=== PATIENT | female | born 1955 | race Caucasian/White ===

== ENCOUNTER 2017-09-19 11:13 | Emergency (ER) | payer MEDICAID ==
[2017-09-19 11:13] VITALS: BMI 29.2
--- NOTE | 2017-09-19 12:32 | ED PDOC ---
Arrival/HPI - General Chief Complaint: Finger,Hand,&Wrist Time Seen by Provider: 09/19/17 12:17 Historian: Patient - History of Present Illness Narrative History of Present Illness (Text): 09/19/17 12:28 62yr old female presents today with a 4 month history of bilateral hand pain. pt states the majority of the pain is in the thumbs bilaterally. pt denies numbness, weakness, tingling. pt states she did have swelling to the hands, but states it has improved. pt denies fever/chills. pt denies trauma or injury. pt states she is constantly working with her hands. pt denies radiation of pain into the forearms. no other complaints. Past Medical History - Provider Review Nursing Documentation Reviewed: Yes - Travel History Have you recently traveled outside [place] w/in the past 3 mons?: No - Infectious Disease Hx of Infectious Diseases: None - Tetanus Immunization Tetanus Immunization: Unknown - Cardiac Hx Cardiac Disorders: Yes Hx Heart Murmur: Yes Hx Hypertension: Yes - Pulmonary Hx Respiratory Disorders: Yes Hx Asthma: Yes Hx Bronchitis: Yes - Neurological Hx Neurological Disorder: Yes HX Cerebrovascular Accident: Yes (SLIGHT RIGHT SIDED WEAKNESS) Hx Dizziness: Yes - HEENT Hx HEENT Disorder: No - Renal Hx Renal Disorder: Yes Hx Kidney Stones: Yes - Endocrine/Metabolic Hx Endocrine Disorders: No - Hematological/Oncological Hx Blood Disorders: No - Integumentary Hx Dermatological Disorder: No - Musculoskeletal/Rheumatological Hx Musculoskeletal Disorders: Yes Hx Falls: No - Gastrointestinal Hx Gastrointestinal Disorders: Yes Hx Gastroesophageal Reflux: Yes Hx Hemorrhoids: Yes - Genitourinary/Gynecological Hx Genitourinary Disorders: Yes Hx Urinary Tract Infection: Yes - Psychiatric Hx Psychophysiologic Disorder: Yes Hx Anxiety: Yes Hx Depression: Yes Hx Substance Use: No - Past Surgical History Past Surgical History: No Previous - Surgical History Hx Tubal Ligation: Yes - Anesthesia Hx Anesthesia: Yes Hx Anesthesia Reactions: No Hx Malignant Hyperthermia: No - Suicidal Assessment Feels Threatened In Home Enviroment: No Family/Social History - Physician Review Nursing Documentation Reviewed: Yes Family/Social History: Unknown Family HX Smoking Status: Never Smoked Hx Alcohol Use: Yes (SOCIALLY) Hx Substance Use: No Hx Substance Use Treatment: No Allergies/Home Meds Allergies/Adverse Reactions: Allergies No Known Allergies Allergy (Verified 09/19/17 11:41) Home Medications: Home Meds Medication Instructions Recorded Confirmed Metoprolol Tartrate [Lopressor] 25 mg PO BID 01/17/12 09/19/17 Aspirin [Aspir 81] 81 mg PO DAILY 12/28/12 09/19/17 amLODIPine [Norvasc] 10 mg PO DAILY 01/06/15 09/19/17 Sertraline HCl [Zoloft] 25 mg PO DAILY 08/15/15 09/19/17 Montelukast [Singulair] 10 mg PO DAILY 10/01/15 09/19/17 Review of Systems - Review of Systems Constitutional: absent: Fatigue, Fevers Respiratory: absent: SOB, Cough Cardiovascular: absent: Chest Pain, Palpitations Gastrointestinal: absent: Abdominal Pain, Nausea, Vomiting Musculoskeletal: Arthralgias. absent: Back Pain, Neck Pain Skin: absent: Rash, Pruritis Neurological: absent: Headache, Dizziness Psychiatric: absent: Anxiety, Depression Physical Exam Vital Signs Reviewed: Yes Vital Signs Temp Pulse Resp BP Pulse Ox 09/19/17 11:43 98.4 F 63 16 127/76 97 Temperature: Afebrile Blood Pressure: Normal Pulse: Regular Respiratory Rate: Normal Appearance: Positive for: Well-Appearing, Non-Toxic, Comfortable Pain Distress: None Mental Status: Positive for: Alert and Oriented X 3 - Systems Exam Head: Present: Atraumatic Mouth: Present: Moist Mucous Membranes Neck: Present: Normal Range of Motion Respiratory/Chest: Present: Clear to Auscultation, Good Air Exchange. No: Respiratory Distress, Accessory Muscle Use Cardiovascular: Present: Regular Rate and Rhythm, Normal S1, S2. No: Murmurs Upper Extremity: Present: Normal ROM, NORMAL PULSES, Tenderness (+ minimal tenderness noted over bilateral thumbs; no edema, no erythema; no ecchymosis; full rom of hand, thumb, fingers. sensation and distal pulses intact. no snuff box tenderness. no edema, no erythema, no ecchymosis; ), Capillary Refill < 2s. No: Swelling, Erythema, Neurovascularly Intact, Temperature Abnormalties, Deformity Neurological: Present: GCS=15, Speech Normal Skin: Present: Warm, Dry, Normal Color. No: Rashes Psychiatric: Present: Alert, Oriented x 3 Medical Decision Making ED Course and Treatment: 09/19/17 12:38 Patient nontoxic well-appearing in no distress with stable vital signs X-rays of the b/l thumbs; no fracture pt placed in b/l thumb spica splints. I discussed all results with patient advised to followup with the orthopedist for the next 2 days. Return if symptoms worsen persist or new symptoms develop Patient verbalizes understanding of discharge instructions and need for immediate followup. all aspects of this case were discussed the attending of record. Impression: thumb pain, Hand pain Motrin every 6 hours as needed for pain Rest, ice, compression, elevation Followup with the orthopedist within the next 2 days Followup with primary care physician within the next 2 days Return if any other concerning symptoms develop - RAD Interpretation Radiology Orders: 09/19/17 12:17 HAND LEFT THUMB [RAD] Stat HAND RIGHT THUMB [RAD] Stat - Medication Orders Current Medication Orders: Discontinued Medications Ibuprofen (Motrin Tab) 600 mg PO STAT STA Stop: 09/19/17 12:39 Last Admin: 09/19/17 13:16 Dose: 600 mg MAR Pain/Vitals Document 09/19/17 13:16 DELMY (Rec: 09/19/17 13:16 DELMY [id number]) Pain Reassessment Is This A Pain ReAssessment? No Sleep Is patient sleeping during reassessment? No Presence of Pain Presence of Pain Yes Disposition/Present on Arrival - Present on Arrival Any Indicators Present on Arrival: No History of DVT/PE: No History of Uncontrolled Diabetes: No Urinary Catheter: No History of Decub. Ulcer: No History Surgical Site Infection Following: None - Disposition Have Diagnosis and Disposition been Completed?: Yes Diagnosis: Hand pain, Thumb pain Disposition: HOME/ ROUTINE Disposition Time: 13:00 Patient Plan: Discharge Patient Problems: Current Active Problems Problem Status Onset Hand pain Acute Thumb pain Acute Condition: GOOD Discharge Instructions (ExitCare): Hand Pain (DC) Additional Instructions: Motrin every 6 hours as needed for pain Rest, ice, compression, elevation Followup with the orthopedist within the next 2 days Followup with primary care physician within the next 2 days Return if any other concerning symptoms develop Referrals: Marbella Redmond MD [Primary Care Provider] - Follow up with primary Sherman Downing III, MD [Medical Doctor] - Follow up with primary Forms: [email or web address] Connect (Indonesian), WORK NOTE
--- NOTE | 2017-09-19 13:41 | RAD ---
PROCEDURE: Right Hand Radiographs. HISTORY: thumb pain x 4 months COMPARISON: None. FINDINGS: BONES: Normal. No fracture. JOINTS: Normal. No osteoarthritic changes. SOFT TISSUES: Normal. OTHER FINDINGS: None. IMPRESSION: Normal right hand radiographs.
--- NOTE | 2017-09-19 13:44 | RAD ---
PROCEDURE: Left Hand Radiographs. HISTORY: thumb pain x 4 months COMPARISON: None. FINDINGS: BONES: Normal. No fracture. JOINTS: Normal. No osteoarthritic changes. SOFT TISSUES: There is a calcification dorsal to the 1st DIP joint. This could represent some type of calcific tendinitis. This does not appear to be an avulsion fracture. There is no obvious defect in the adjacent bone OTHER FINDINGS: None. IMPRESSION: There is a calcification dorsal to the 1st DIP joint. This could represent some type of calcific tendinitis. This does not appear to be an avulsion fracture. There is no obvious defect in the adjacent bone
[2017-09-19 14:51] VITALS: BP 122/82; PULSE 66; RESP 18; TEMP 98.2; O2SAT 99
== END 2017-09-19 14:30 | disposition home or self-care (01) ==
LOC: ED 11:13
DX: M79.641 Pain in right hand (principal); M79.642 Pain in left hand; M79.645 Pain in left finger(s); M79.644 Pain in right finger(s); I10 Essential (primary) hypertension

== ENCOUNTER 2018-04-11 16:29 | Observation (INO) | payer MEDICAID ==
[2018-04-11 16:31] VITALS: BMI 27.9
--- NOTE | 2018-04-11 17:13 | ED PDOC ---
Arrival/HPI - General Chief Complaint: Chest Pain Time Seen by Provider: 04/11/18 16:38 Historian: Patient - History of Present Illness Narrative History of Present Illness (Text): 04/11/18 17:07 62 year old female, whose past medical history includes hypertension, and TIA, presents to the emergency department complaining of chest pain intermittently for the past 2 weeks. Patient states a throbbing and squeezing pain in the center of chest and worsens with exertion. She also notes secondary, intermittent leg swelling and orthopnea. Patient was seen by her PMD, Dr. Redmond who recommend evaluation by the emergency department. Of note, patient did not take aspirin today. Patient denies chest pain radiating to the back, any fall or trauma, fever, chills, night sweat, pleuritic chest pain, headache, dizziness, abdominal pain, nausea, vomiting, or any other complaint. Time/Duration: > week (2 weeks) Symptom Course: Intermittent Activities at Onset: Light Context: Home Past Medical History - Provider Review Nursing Documentation Reviewed: Yes - Infectious Disease Hx of Infectious Diseases: None - Tetanus Immunization Tetanus Immunization: Unknown - Reproductive Menopause: Yes - Cardiac Hx Cardiac Disorders: Yes Hx Heart Murmur: Yes Hx Hypertension: Yes - Pulmonary Hx Respiratory Disorders: Yes Hx Asthma: Yes Hx Bronchitis: Yes - Neurological Hx Neurological Disorder: Yes HX Cerebrovascular Accident: Yes (SLIGHT RIGHT SIDED WEAKNESS) Hx Dizziness: Yes - HEENT Hx HEENT Disorder: No - Renal Hx Renal Disorder: Yes Hx Kidney Stones: Yes - Endocrine/Metabolic Hx Endocrine Disorders: No - Hematological/Oncological Hx Blood Disorders: No - Integumentary Hx Dermatological Disorder: No - Musculoskeletal/Rheumatological Hx Musculoskeletal Disorders: Yes - Gastrointestinal Hx Gastrointestinal Disorders: Yes Hx Gastroesophageal Reflux: Yes Hx Hemorrhoids: Yes - Genitourinary/Gynecological Hx Genitourinary Disorders: Yes Hx Urinary Tract Infection: Yes - Psychiatric Hx Psychophysiologic Disorder: Yes Hx Anxiety: Yes Hx Depression: Yes Hx Substance Use: No - Past Surgical History Past Surgical History: No Previous - Surgical History Hx Tubal Ligation: Yes - Anesthesia Hx Anesthesia: Yes Hx Anesthesia Reactions: No Hx Malignant Hyperthermia: No - Suicidal Assessment Feels Threatened In Home Enviroment: No Family/Social History - Physician Review Nursing Documentation Reviewed: Yes Family/Social History: No Known Family HX Smoking Status: Never Smoked Hx Alcohol Use: Yes (SOCIALLY) Hx Substance Use: No Hx Substance Use Treatment: No Allergies/Home Meds Allergies/Adverse Reactions: Allergies No Known Allergies Allergy (Verified 09/19/17 11:41) Home Medications: Home Meds Medication Instructions Recorded Confirmed Metoprolol Tartrate [Lopressor] 25 mg PO BID 01/17/12 09/19/17 Aspirin [Aspir 81] 81 mg PO DAILY 12/28/12 09/19/17 amLODIPine [Norvasc] 10 mg PO DAILY 01/06/15 09/19/17 Sertraline HCl [Zoloft] 25 mg PO DAILY 08/15/15 09/19/17 Montelukast [Singulair] 10 mg PO DAILY 10/01/15 09/19/17 Review of Systems - Physician Review All systems were reviewed & negative as marked: Yes - Review of Systems Constitutional: absent: Weight Change, Fevers Eyes: absent: Vision Changes ENT: absent: Hearing Changes Respiratory: SOB Cardiovascular: Chest Pain, Edema (bilaterally) Gastrointestinal: absent: Abdominal Pain, Diarrhea, Nausea, Vomiting Genitourinary Female: absent: Dysuria, Frequency, Hematuria Musculoskeletal: absent: Back Pain, Neck Pain Skin: absent: Rash, Pruritis Neurological: absent: Headache, Dizziness Physical Exam Vital Signs Reviewed: Yes Vital Signs Temp Pulse Pulse Resp BP Pulse Ox 04/11/18 16:43 78 04/11/18 16:30 98 F 88 18 132/85 97 Temperature: Afebrile Blood Pressure: Normal Pulse: Regular Respiratory Rate: Normal Appearance: Positive for: Well-Appearing, Non-Toxic, Comfortable Pain Distress: None Mental Status: Positive for: Alert and Oriented X 3 - Systems Exam Head: Present: Atraumatic, Normocephalic Pupils: Present: PERRL Extroacular Muscles: Present: EOMI Conjunctiva: Present: Normal Mouth: Present: Moist Mucous Membranes Neck: Present: Normal Range of Motion. No: Meningeal Signs Respiratory/Chest: Present: Clear to Auscultation, Good Air Exchange. No: Respiratory Distress, Accessory Muscle Use Cardiovascular: Present: Regular Rate and Rhythm, Normal S1, S2. No: Murmurs Abdomen: No: Tenderness, Distention, Peritoneal Signs, Rebound, Guarding, McBurney's Point Tender, Rovsing's Sign Present Back: Present: Normal Inspection Upper Extremity: Present: Normal Inspection. No: Cyanosis, Edema Lower Extremity: Present: Edema (1+ edema bilaterally ) Neurological: Present: GCS=15, CN II-XII Intact, Speech Normal Skin: Present: Warm, Dry, Normal Color. No: Rashes Psychiatric: Present: Alert, Oriented x 3, Normal Insight, Normal Concentration Medical Decision Making ED Course and Treatment: 04/11/18 17:00 Impression: 62 year old female who presents to the emergency department complaining of chest pain. chest pain non pleuritic, no unilateral leg swelling or hx of dvt or PE per pt. No hx of cancer or recent surgery or trauma. Given CP and 2015 was last echo/stress will likely require obs/inpt eval. Heart score: AGE: 1 RF: 1 Story: 2 EK trop: pending Plan: -- EKG -- Labs -- Chest X-ray -- Reassess and disposition Prior Visits: Notes and results from previous visits were reviewed. Progress Notes: EKG reviewed, shows: NSR at 85 bpm, no stemi. 04/11/18 17:[address] Luu, who recommends evaluation by hospitalist and admission or obs. 04/11/18 17:53 Imaging, trop, BNP unremarkable pt did not take ASA today will give ASA Appreciate consult w/ Dr. Santos: to admit to his service. pt in NAD, agreeable to plan. - Lab Interpretations I have reviewed the lab results: Yes - RAD Interpretation Radiology Orders: 04/11/18 16:58 CHEST TWO VIEWS (PA/LAT) [RAD] Stat - EKG Interpretation Interpreted by ED Physician: Yes Type: 12 lead EKG - Scribe Statement The provider has reviewed the documentation as recorded by the Laci Wilcox Provider Scribe Attestation: All medical record entries made by the Scribe were at my direction and personally dictated by me. I have reviewed the chart and agree that the record accurately reflects my personal performance of the history, physical exam, medical decision making, and the department course for this patient. I have also personally directed, reviewed, and agree with the discharge instructions and disposition. Disposition/Present on Arrival - Present on Arrival Any Indicators Present on Arrival: No History of DVT/PE: No History of Uncontrolled Diabetes: No Urinary Catheter: No History of Decub. Ulcer: No History Surgical Site Infection Following: None - Disposition Have Diagnosis and Disposition been Completed?: Yes Diagnosis: Chest pain Disposition Time: 18:09 Condition: GOOD Discharge Instructions (ExitCare): Chest Pain (ED) Forms: [employer] (Indonesian)
[2018-04-11 17:15] LABS: BASO # 0.05 K/mm3 (0.0-2.0); BASO % 0.8 % (0.0-3.0); EOS # 0.2 (0.0-0.7); EOS % 3.9 % (1.5-5.0); GRAN # 3.66 (1.4-6.5); GRAN % 61.8 % (50.0-68.0); HEMOGLOBIN 12.7 g/dL (12.0-16.0); LYMPH # 1.5 (1.2-3.4); LYMPH % 25.6 % (22.0-35.0); MEAN CORPUSCULAR HEMOGLOBIN 30.5 pg (25.0-35.0); MEAN CORPUSCULAR HGB CONC 32.2 g/dl (31.0-37.0); MEAN PLATELET VOLUME 10.9 fl (7.0-11.0); MONO # 0.5 (0.1-0.6); MONO % 7.9 % (1.0-6.0); RBC 4.16 10^6/uL (3.5-6.1); RED CELL DISTRIBUTION WIDTH 13.2 % (11.5-14.5); WHITE BLOOD COUNT 5.9 10^3/uL (4.5-11.0)
[2018-04-11 17:23] LABS: ALB/GLOB RATIO 1.4 (1.1-1.8); ALBUMIN 4.2 g/dL (3.0-4.8); ALT/SGPT 32 U/L (7-56); AST/SGOT 27 U/L (14-36); BLOOD UREA NITROGEN 10 mg/dL (7-21); CALCIUM 9.2 mg/dL (8.4-10.5); GFR NON-AFRICAN AMERICAN > 60
[2018-04-11 17:32] LABS: B-TYPE NATRIURETIC PEPTIDE 79.2 pg/mL (0-450); TROPONIN I < 0.01 ng/mL
--- NOTE | 2018-04-11 17:46 | RAD ---
Date of service: 04/11/2018 HISTORY: Chest pain COMPARISON: 09/10/2014. TECHNIQUE: Chest PA and lateral FINDINGS: LINES AND TUBES: None. LUNG AND PLEURA: The lungs are well inflated and clear. No pleural effusion or pneumothorax. HEART AND MEDIASTINUM: There is mild cardiomegaly. No aortic atherosclerotic calcification present. The hilar and mediastinal contours are within normal limits. SKELETAL STRUCTURES: The bony structures are within normal limits for the patient's age. VISUALIZED UPPER ABDOMEN: Normal. OTHER FINDINGS: None. IMPRESSION: No active pulmonary disease.
[2018-04-11] MEDS ORDERED: Albuterol-Ipratrop 3 mg / 0.5 (3 ml) UD IH PRN (18:31)
--- NOTE | 2018-04-11 18:55 | CP.PCM.HP ---
<Walt Kilgore - Last Filed: 04/11/18 19:51> History of Present Illness - History of Present Illness History of Present Illness: Walt Kilgore, PGY-1, Internal Medicine History and Physical for Dr. Larry 62 year old female with past medical history of myocardial infarction, hypercholesterolemia, hypertension, TIA, peptic ulcer disease, mitral valve dysfunction, obstructive sleep apnea, and dental and sinus infection presents with 1 weeks of crushing, stabbing chest pain. Patient reports that she has had this type of pain before when she had a myocardial infarction in 2003. No PCI was done at that time. Patient reports this pain radiates to the right arm. Tylenol relieves the pain. Movement or exertion does not alleviate or exacerbate the pain. Patient has also had 1 week of nausea, 2 weeks of diaphoresis, and frontal sinus pain. Patient has shortness of breath while suing the stairs that has worsened for the past 2 weeks. She has worsened back pain for on week. She also compalins of mild stabbing right lower quadrant pain that radiates to her right flank. She denies fever, chills, dysuria, hematuria, vomiting, constipation, diarrhea, numbness/tingling. 12-point ROS was negative except for what was listed above. PMH: as listed above PSH: tubal ligation FMHx: Mother: diabetes, hypertension, and hyperlipidemia and living at 83 years old. Father is from a heart attack at 53 years old. Social history: denies smoking, alcohol, or recreational drug use Allergies: NKDA, latex PMD: Dr. Redmond Cardiology: Dr. Wright Pharmacy: [facility] Present on Admission - Present on Admission Any Indicators Present on Admission: No Review of Systems - Constitutional Constitutional: Headache. absent: Anorexia, Chills, Fever - EENT Eyes: absent: Change in Vision Ears: absent: Decreased Hearing - Cardiovascular Cardiovascular: Chest Pain, Chest Pain at Rest, Chest Pain with Activity, Diaphoresis, Dyspnea, Pain Radiating to Arm/Neck/Jaw. absent: Irregular Heart Rhythm - Respiratory Respiratory: Dyspnea. absent: Cough, Hemoptysis, Dyspnea on Exertion - Gastrointestinal Gastrointestinal: Abdominal Pain (RLQ), Nausea. absent: Constipation, Diarrhea, Vomiting - Genitourinary Genitourinary: Flank Pain. absent: Dysuria, Hematuria - Musculoskeletal Musculoskeletal: absent: Arthralgias, Atrophy - Integumentary Integumentary: absent: Acne, Dry Skin - Neurological Neurological: Headaches Past Patient History - Infectious Disease Hx of Infectious Diseases: None - Tetanus Immunizations Tetanus Immunization: Unknown - Past Social History Smoking Status: Never Smoked - CARDIAC Hx Cardiac Disorders: Yes Hx Heart Murmur: Yes Hx Hypertension: Yes - PULMONARY Hx Respiratory Disorders: Yes Hx Asthma: Yes Hx Bronchitis: Yes - NEUROLOGICAL Hx Neurological Disorder: Yes HX Cerebrovascular Accident: Yes (SLIGHT RIGHT SIDED WEAKNESS) Hx Dizziness: Yes - HEENT Hx HEENT Problems: No - RENAL Hx Chronic Kidney Disease: Yes Hx Kidney Stones: Yes - ENDOCRINE/METABOLIC Hx Endocrine Disorders: No - HEMATOLOGICAL/ONCOLOGICAL Hx Blood Disorders: No - INTEGUMENTARY Hx Dermatological Problems: No - MUSCULOSKELETAL/RHEUMATOLOGICAL Hx Musculoskeletal Disorders: Yes - GASTROINTESTINAL Hx Gastrointestinal Disorders: Yes Hx Gastroesophageal Reflux: Yes Hx Hemorrhoids: Yes - GENITOURINARY/GYNECOLOGICAL Hx Genitourinary Disorders: Yes Hx Urinary Tract Infection: Yes - PSYCHIATRIC Hx Psychophysiologic Disorder: Yes Hx Anxiety: Yes Hx Depression: Yes Hx Substance Use: No - SURGICAL HISTORY Hx Tubal Ligation: Yes - ANESTHESIA Hx Anesthesia: Yes Hx Anesthesia Reactions: No Hx Malignant Hyperthermia: No Meds Allergies/Adverse Reactions: Allergies Allergy/AdvReac Type Severity Reaction Status Date / Time No Known Allergies Allergy Verified 09/19/17 11:41 Physical Exam - Head Exam Head Exam: ATRAUMATIC, NORMAL INSPECTION, NORMOCEPHALIC - Eye Exam Eye Exam: EOMI, PERRL - ENT Exam ENT Exam: Mucous Membranes Moist - Respiratory Exam Respiratory Exam: Clear to Auscultation Bilateral, NORMAL BREATHING PATTERN - Cardiovascular Exam Cardiovascular Exam: REGULAR RHYTHM, +S1, +S2. absent: JVD - GI/Abdominal Exam GI & Abdominal Exam: Distended, Normal Bowel Sounds, Soft, Tenderness (mild tenderness) - Extremities Exam Extremities exam: Positive for: full ROM, normal inspection - Back Exam Back exam: NORMAL INSPECTION - Neurological Exam Neurological exam: CN II-XII Intact, Normal Gait, Oriented x3 Results - Vital Signs Recent Vital Signs: Last Vital Signs Temp 98 F 04/11/18 16:30 Pulse 77 04/11/18 18:31 Resp 18 04/11/18 18:31 BP 125/83 04/11/18 18:31 Pulse Ox 96 12/05/18 18:31 - Labs Result Diagrams: 04/11/18 17:04 04/11/18 17:04 Labs: Laboratory Results - last 24 hr 04/11/18 04/11/18 17:04 17:04 WBC 5.9 RBC 4.16 Hgb 12.7 Hct 39.5 MCV 95.0 MCH 30.5 MCHC 32.2 RDW 13.2 Plt Count 327 MPV 10.9 Gran % 61.8 Lymph % (Auto) 25.6 Stanley % (Auto) 7.9 H Eos % (Auto) 3.9 Baso % (Auto) 0.8 Gran # 3.66 Lymph # (Auto) 1.5 Stanley # (Auto) 0.5 Eos # (Auto) 0.2 Baso # (Auto) 0.05 Sodium 138 Potassium 3.8 Chloride 104 Carbon Dioxide 27 Anion Gap 11 BUN 10 Creatinine 0.7 Est GFR ( Amer) > 60 Est GFR (Non-Af Amer) > 60 Random Glucose 92 Calcium 9.2 Magnesium 2.0 Total Bilirubin 0.4 AST 27 ALT 32 Alkaline Phosphatase 59 Troponin I < 0.01 NT-Pro-B Natriuret Pep 79.2 Total Protein 7.2 Albumin 4.2 Globulin 3.0 Albumin/Globulin Ratio 1.4 Assessment & Plan - Assessment and Plan (Free Text) Assessment: 62 year old female with past medical history of myocardial infarction, hypercholesterolemia, hypertension, TIA, peptic ulcer disease, mitral valve dys function, obstructive sleep apnea, and dental and sinus infection presents with 1 weeks of crushing, stabbing chest pain. Plan: Atypical Chest pain secondary to costochondritis vs. stable angina vs. asthma -Last reported VT was in 2003 -EKG today: normal sinus rhythm, HR: 85, CA: 136, QRS: 100, QTc: 459 -CXR: mild cardiomegaly. No aortic atherosclerotic calcification present.. Lungs are well inflated and clear. No pleural effusion or pneumothorax. -Last echocardiogram 2015: 60-65% EF, mild MR, TR -Last stress test 2015: normal gated wall motion of left ventricle -Troponin: <0.01 -Two more troponin levels ordered. -Follow up TSH, lipid panel, hemoglobin A1c. -Heart healthy diet. -Aspirin 325 given in emergency department. -Continue home metoprolol -Continue with home singulair, duonebs, flonase -Toradol 15 mg IVP Q6PRN for pain. -Dr. Wright, Cardiology, consulted for recommendations. Hypertension -Last blood pressure was 125/83 -Continue home metoprolol, norvasc Hyperlipidemia -Lipid panel ordered. -Start lipitor 10 mg daily History of depression -Continue with home zoloft DVT prophylaxis: lovenox 40 mg daily GI prophylaxis: protonix 40 mg daily Patient plan discussed with Dr. Larry. - Date & Time Date: 04/11/18 Time: 19:01 <Sadie Larry - Last Filed: 04/11/18 20:16> Results - Vital Signs Recent Vital Signs: Last Vital Signs Temp 98 F 04/11/18 16:30 Pulse 77 04/11/18 18:31 Resp 18 04/11/18 18:31 BP 125/83 04/11/18 18:31 Pulse Ox 96 04/11/18 18:31 - Labs Result Diagrams: 04/11/18 17:04 04/11/18 17:04 Labs: Laboratory Results - last 24 hr 04/11/18 04/11/18 17:04 17:04 WBC 5.9 RBC 4.16 Hgb 12.7 Hct 39.5 MCV 95.0 MCH 30.5 MCHC 32.2 RDW 13.2 Plt Count 327 MPV 10.9 Gran % 61.8 Lymph % (Auto) 25.6 Stanley % (Auto) 7.9 H Eos % (Auto) 3.9 Baso % (Auto) 0.8 Gran # 3.66 Lymph # (Auto) 1.5 Stanley # (Auto) 0.5 Eos # (Auto) 0.2 Baso # (Auto) 0.05 Sodium 138 Potassium 3.8 Chloride 104 Carbon Dioxide 27 Anion Gap 11 BUN 10 Creatinine 0.7 Est GFR ( Amer) > 60 Est GFR (Non-Af Amer) > 60 Random Glucose 92 Calcium 9.2 Magnesium 2.0 Total Bilirubin 0.4 AST 27 ALT 32 Alkaline Phosphatase 59 Troponin I < 0.01 NT-Pro-B Natriuret Pep 79.2 Total Protein 7.2 Albumin 4.2 Globulin 3.0 Albumin/Globulin Ratio 1.4 Attending/Attestation - Attestation I have personally seen and examined this patient.: Yes I have fully participated in the care of the patient.: Yes I have reviewed all pertinent clinical information: Yes
--- NOTE | 2018-04-11 19:15 | CARD ---
APPROVED REPORT Date of service: 04/11/2018 EKG Measurement Heart [id number] <Conclusion> Normal sinus rhythm Possible Left atrial enlargement Inferior infarct, age undetermined Abnormal ECG
[2018-04-12] MEDS ORDERED: Pantoprazole 40 mg EC Tab PO SCH (06:00)
[2018-04-12 06:22] VITALS: O2SAT 99
[2018-04-12 06:41] LABS: ALB/GLOB RATIO 1.3 (1.1-1.8); ALBUMIN 3.6 g/dL (3.0-4.8); ALT/SGPT 35 U/L (7-56); AST/SGOT 25 U/L (14-36); BLOOD UREA NITROGEN 11 mg/dL (7-21); CALCIUM 9.2 mg/dL (8.4-10.5); GFR NON-AFRICAN AMERICAN > 60; HDL CHOLESTEROL 41 mg/dL (29-60)
[2018-04-12 06:42] LABS: BASO # 0.03 K/mm3 (0.0-2.0); BASO % 0.6 % (0.0-3.0); EOS # 0.3 (0.0-0.7); EOS % 5.7 % (1.5-5.0); GRAN # 2.51 (1.4-6.5); GRAN % 48.8 % (50.0-68.0); HEMOGLOBIN 11.9 g/dL (12.0-16.0); LYMPH # 1.7 (1.2-3.4); LYMPH % 32.4 % (22.0-35.0); MEAN CELL VOLUME 94.8 fl (80.0-105.0); MEAN CORPUSCULAR HEMOGLOBIN 29.8 pg (25.0-35.0); MEAN CORPUSCULAR HGB CONC 31.4 g/dl (31.0-37.0); MEAN PLATELET VOLUME 10.6 fl (7.0-11.0); MONO # 0.6 (0.1-0.6); MONO % 12.5 % (1.0-6.0); RED CELL DISTRIBUTION WIDTH 13.3 % (11.5-14.5); WHITE BLOOD COUNT 5.1 10^3/uL (4.5-11.0)
[2018-04-12 06:52] LABS: LDL CHOLESTEROL 133 mg/dL (0-129); TROPONIN I < 0.01 ng/mL
--- NOTE | 2018-04-12 08:00 | CP.PCM.CON ---
History of Present Illness - History of Present Illness History of Present Illness: Awake, alert, some mild chest discomfort Reason for consultation: Cardiac evaluation of chest pain, history of myocardial infarction in 2004, hypercholesterolemia, hypertension Brief history of present illness:A 62 year old female who came in to the ER due to stabbing mid sternal chest pain radiating to right arm. Denies chest pain now but still with chest discomfort. She also complaints of shortness of breath on exertion. History of myocardial infarction in 2003, hypercholesterolemia, hypertension, TIA, peptic ulcer disease, mitral valve dysfunction, obstructive sleep apnea, and dental and sinus infection Seen and examined by me and Dr. Wright Review of Systems - Review of Systems All systems: reviewed and no additional remarkable complaints except Review of Systems: as per HPI Past Patient History - Infectious Disease Hx of Infectious Diseases: None - Tetanus Immunizations Tetanus Immunization: Unknown - Past Social History Smoking Status: Never Smoked - CARDIAC Hx Heart Murmur: Yes Hx Hypertension: Yes - PULMONARY Hx Bronchitis: Yes - NEUROLOGICAL Hx Dizziness: Yes Hx Transient Ischemic Attacks (TIA): Yes (r side weakness) - HEENT Hx HEENT Problems: No - RENAL Hx Chronic Kidney Disease: Yes (renal disease) - ENDOCRINE/METABOLIC Hx Endocrine Disorders: No - HEMATOLOGICAL/ONCOLOGICAL Hx Blood Disorders: No - INTEGUMENTARY Hx Dermatological Problems: No - MUSCULOSKELETAL/RHEUMATOLOGICAL Hx Falls: No - GASTROINTESTINAL Hx Gastrointestinal Disorders: Yes Hx Gastroesophageal Reflux: Yes Hx Hemorrhoids: Yes - GENITOURINARY/GYNECOLOGICAL Hx Urinary Tract Infection: Yes - PSYCHIATRIC Hx Anxiety: Yes Hx Depression: Yes Hx Substance Use: No - SURGICAL HISTORY Hx Surgeries: Yes (tubal ligation) - ANESTHESIA Hx Anesthesia: Yes Hx Anesthesia Reactions: No Hx Malignant Hyperthermia: No Meds Allergies/Adverse Reactions: Allergies Allergy/AdvReac Type Severity Reaction Status Date / Time No Known Allergies Allergy Verified 09/19/17 11:41 - Medications Medications: Current Medications Acetaminophen (Tylenol 325mg Tab) 650 mg PO Q6H PRN PRN Reason: Pain, moderate (4-7) Albuterol/Ipratropium (Duoneb 3 Mg/0.5 Mg (3 Ml) Ud) 3 ml IH Q2H PRN PRN Reason: Shortness of Breath Amlodipine Besylate (Norvasc) 10 mg PO DAILY [facility] Aspirin (Ecotrin) 81 mg PO DAILY [facility] Atorvastatin Calcium (Lipitor) 10 mg PO DIN [facility] Enoxaparin Sodium (Lovenox) 40 mg SC DAILY [facility]; Protocol Fluticasone Propionate (Flonase) 1 actuation NS QAM MARIANELA Ketorolac Tromethamine (Toradol) 15 mg IVP Q6 PRN PRN Reason: Pain, moderate (4-7) Last Admin: 04/12/18 04:50 Dose: 15 mg Metoprolol Tartrate (Lopressor) 25 mg PO BID [facility] Montelukast Sodium (Singulair) 10 mg PO DAILY [facility] Ondansetron HCl (Zofran Odt) 4 mg PO Q8H PRN PRN Reason: Nausea/Vomiting Pantoprazole Sodium (Protonix Ec Tab) 40 mg PO 0600 MARIANELA Last Admin: 04/12/18 05:08 Dose: 40 mg Sertraline HCl (Zoloft) 25 mg PO DAILY [facility] Physical Exam - Constitutional Appears: Non-toxic, No Acute Distress - Head Exam Head Exam: NORMAL INSPECTION, NORMOCEPHALIC - ENT Exam ENT Exam: Mucous Membranes Moist, Normal Exam - Respiratory Exam Respiratory Exam: Decreased Breath Sounds, NORMAL BREATHING PATTERN - Cardiovascular Exam Cardiovascular Exam: REGULAR RHYTHM, +S1, +S2 Additional comments: Telemetry NSR 60's-70's Mild chest discomfort, denies chest pain - GI/Abdominal Exam GI & Abdominal Exam: Normal Bowel Sounds, Soft - Neurological Exam Neurological exam: Alert, Oriented x3 - Psychiatric Exam Psychiatric exam: Normal Affect, Normal Mood - Skin Skin Exam: Dry, Normal Color, Warm Results - Vital Signs Recent Vital Signs: Last Vital Signs Temp 98.0 F 04/12/18 06:00 Pulse 70 04/12/18 06:00 Resp 18 04/12/18 06:00 BP 136/85 04/12/18 06:00 Pulse Ox 99 04/12/18 06:00 - Labs Result Diagrams: 04/12/18 06:00 04/12/18 06:00 Labs: Laboratory Results - last 24 hr 04/11/18 04/11/18 04/12/18 17:04 17:04 01:50 WBC 5.9 RBC 4.16 Hgb 12.7 Hct 39.5 MCV 95.0 MCH 30.5 MCHC 32.2 RDW 13.2 Plt Count 327 MPV 10.9 Gran % 61.8 Lymph % (Auto) 25.6 [place] % (Auto) 7.9 H Eos % (Auto) 3.9 Baso % (Auto) 0.8 Gran # 3.66 Lymph # (Auto) 1.5 [place] # (Auto) 0.5 Eos # (Auto) 0.2 Baso # (Auto) 0.05 Sodium 138 Potassium 3.8 Chloride 104 Carbon Dioxide 27 Anion Gap 11 BUN 10 Creatinine 0.7 Est GFR ( Amer) > 60 Est GFR (Non-Af Amer) > 60 Random Glucose 92 Calcium 9.2 Phosphorus Magnesium 2.0 Total Bilirubin 0.4 AST 27 ALT 32 Alkaline Phosphatase 59 Troponin I < 0.01 < 0.01 NT-Pro-B Natriuret Pep 79.2 Total Protein 7.2 Albumin 4.2 Globulin 3.0 Albumin/Globulin Ratio 1.4 Triglycerides Cholesterol LDL Cholesterol Direct HDL Cholesterol TSH 3rd Generation 04/12/18 04/12/18 04/12/18 06:00 06:00 06:00 WBC 5.1 RBC 4.00 Hgb 11.9 L Hct 37.9 MCV 94.8 MCH 29.8 MCHC 31.4 RDW 13.3 Plt Count 285 MPV 10.6 Gran % 48.8 L Lymph % (Auto) 32.4 [place] % (Auto) 12.5 H Eos % (Auto) 5.7 H Baso % (Auto) 0.6 Gran # 2.51 Lymph # (Auto) 1.7 [place] # (Auto) 0.6 Eos # (Auto) 0.3 Baso # (Auto) 0.03 Sodium 139 Potassium 3.6 Chloride 105 Carbon Dioxide 29 Anion Gap 8 L BUN 11 Creatinine 0.7 Est GFR ( Amer) > 60 Est GFR (Non-Af Amer) > 60 Random Glucose 107 Calcium 9.2 Phosphorus 4.4 Magnesium 2.1 Total Bilirubin 0.3 AST 25 ALT 35 Alkaline Phosphatase 54 Troponin I < 0.01 NT-Pro-B Natriuret Pep Total Protein 6.5 Albumin 3.6 Globulin 2.9 Albumin/Globulin Ratio 1.3 Triglycerides 91 Cholesterol 203 H LDL Cholesterol Direct 133 H HDL Cholesterol 41 TSH 3rd Generation 1.50 Assessment & Plan - Assessment and Plan (Free Text) Assessment: A 62 year old female who came in to the ER due to stabbing mid sternal chest pain radiating to right arm. Denies chest pain now but still with chest discomfort. She also complaints of shortness of breath on exertion. History of myocardial infarction, hypercholesterolemia, hypertension, TIA, peptic ulcer disease, mitral valve dysfunction, obstructive sleep apnea, and dental and sinus infection. Non compliant with follow up appointments. EKG, NSR. Troponin normal x 3. Atypical chest pain . Will order Stress test and Echo today. [place] [facility] [place] test- Normal study LVEF 75% 09/11/14- Echo done- Normal LVEF 60-65%, Trace MR/TR/AR. Plan: Some chest discomfort Denies shortness of breath Troponinx 3 normal For Stress test today For Echo today Heart rate and blood pressure controlled On Norvasc 10 mg daily, ASA 81 mg daily,Lipitor 10 mg daily, Lopressor 25 mg BID Continue current treatment Continue current medications Will follow up Further recommendations during hospital course Chart reviewed Plan and treatment discussed with Dr. Wright Thank you Dr. Santos for the opportunity of taking care of Dali Trudy - Date & Time Date: 04/12/18 Time: 06:15
[2018-04-12] MEDS ORDERED: Enoxaparin 40 mg Syringe SC SCH (10:00)
[2018-04-12] MEDS ORDERED: Fluticasone Nasal 50 mcg/Spray NS SCH (10:00)
[2018-04-12] MEDS ORDERED: Azithromycin 500MG/NS 250ml 500 MG/250 ML BAG IVPB STA (11:39)
--- NOTE | 2018-04-12 14:11 | CP.PCM.DIS ---
<JulianghiaWalt - Last Filed: 04/12/18 14:08> Provider - Provider Date of Admission: 04/11/18 18:11 Attending physician: Della Santos MD Primary care physician: Dr. Redmond Consults: 04/11/18 19:11 Physician Consult Routine Comment: Atypical chest pain w/ history of cardiac events Consulting Provider: Bobby Wright Consulting Physician: Bobby Wright Reason for Consult: Atypical chest pain w/ history of cardiac events Time Spent in preparation of Discharge (in minutes): 60 Diagnosis - Discharge Diagnosis (1) Shortness of breath Status: Acute (2) Chest pain Status: Acute Hospital Course - Lab Results Lab Results: Most Recent Lab Values WBC 5.1 10^3/uL (4.5-11.0) 04/12/18 06:00 RBC 4.00 10^6/uL (3.5-6.1) 04/12/18 06:00 Hgb 11.9 g/dL (12.0-16.0) L 04/12/18 06:00 Hct 37.9 % (36.0-48.0) 04/12/18 06:00 MCV 94.8 fl (80.0-105.0) 04/12/18 06:00 MCH 29.8 pg (25.0-35.0) 04/12/18 06:00 MCHC 31.4 g/dl (31.0-37.0) 04/12/18 06:00 RDW 13.3 % (11.5-14.5) 04/12/18 06:00 Plt Count 285 10^3/uL (120.0-450.0) 04/12/18 06:00 MPV 10.6 fl (7.0-11.0) 04/12/18 06:00 Gran % 48.8 % (50.0-68.0) L 04/12/18 06:00 Lymph % (Auto) 32.4 % (22.0-35.0) 04/12/18 06:00 [place] % (Auto) 12.5 % (1.0-6.0) H 04/12/18 06:00 Eos % (Auto) 5.7 % (1.5-5.0) H 04/12/18 06:00 Baso % (Auto) 0.6 % (0.0-3.0) 04/12/18 06:00 Gran # 2.51 (1.4-6.5) 04/12/18 06:00 Lymph # (Auto) 1.7 (1.2-3.4) 04/12/18 06:00 [place] # (Auto) 0.6 (0.1-0.6) 04/12/18 06:00 Eos # (Auto) 0.3 (0.0-0.7) 04/12/18 06:00 Baso # (Auto) 0.03 K/mm3 (0.0-2.0) 04/12/18 06:00 Sodium 139 mmol/L (132-148) 04/12/18 06:00 Potassium 3.6 mmol/L (3.6-5.0) 04/12/18 06:00 Chloride 105 mmol/L (98-107) 04/12/18 06:00 Carbon Dioxide 29 mmol/L (21-33) 04/12/18 06:00 Anion Gap 8 (10-20) L 04/12/18 06:00 BUN 11 mg/dL (7-21) 04/12/18 06:00 Creatinine 0.7 mg/dl (0.7-1.2) 04/12/18 06:00 Est GFR ( Amer) > 60 04/12/18 06:00 Est GFR (Non-Af Amer) > 60 04/12/18 06:00 Random Glucose 107 mg/dL (70-110) 04/12/18 06:00 Hemoglobin A1c 5.7 % (4.2-6.5) 04/12/18 06:00 Calcium 9.2 mg/dL (8.4-10.5) 04/12/18 06:00 Phosphorus 4.4 mg/dL (2.5-4.5) 04/12/18 06:00 Magnesium 2.1 mg/dL (1.7-2.2) 04/12/18 06:00 Total Bilirubin 0.3 mg/dL (0.2-1.3) 04/12/18 06:00 AST 25 U/L (14-36) 04/12/18 06:00 ALT 35 U/L (7-56) 12/06/18 06:00 Alkaline Phosphatase 54 U/L (38-126) 04/12/18 06:00 Troponin I < 0.01 ng/mL 04/12/18 06:00 NT-Pro-B Natriuret Pep 79.2 pg/mL (0-450) 04/11/18 17:04 Total Protein 6.5 g/dL (5.8-8.3) 04/12/18 06:00 Albumin 3.6 g/dL (3.0-4.8) 04/12/18 06:00 Globulin 2.9 gm/dL 04/12/18 06:00 Albumin/Globulin Ratio 1.3 (1.1-1.8) 04/12/18 06:00 Triglycerides 91 mg/dL (35-160) 04/12/18 06:00 Cholesterol 203 mg/dL (130-200) H 04/12/18 06:00 LDL Cholesterol Direct 133 mg/dL (0-129) H 04/12/18 06:00 HDL Cholesterol 41 mg/dL (29-60) 04/12/18 06:00 TSH 3rd Generation 1.50 mIU/mL (0.46-4.68) 04/12/18 06:00 - Hospital Course Hospital Course: Walt Kilgore, PGY-1, Internal Medicine Discharge Summary for Dr. Santos 62 year old female with past medical history of myocardial infarction, hypercholesterolemia, hypertension, TIA, peptic ulcer disease, mitral valve dysfunction, obstructive sleep apnea, and dental and sinus infection presented with 1 week of crushing, stabbing chest pain. Movement or exertion did not alleviate or exacerbate the pain. Patient reports this pain radiated to the right arm. Patient reported that she has had this type of pain before when she had a myocardial infarction in 2003. No PCI was done at that time. 3 troponin levels were negative and EKG showed normal sinus rhythm with heart rate of 85. Chest X ray showed mild cardiomegaly. No aortic atherosclerotic calcification present.. Lungs are well inflated and clear. No pleural effusion or pneumothorax. Aspirin 325 was given in the emergency department and patient was continued on home metoprolol. Patient's home singulair, duonebs, and flonase was also continued because of patient's asthma history. Dr. Wright, Cardiology, was consulted for recommendations, who performed a stress test and echocardiogram on the patient. As per Dr. Wright, patient was cleared by Cardiology and was started on azithromycin. He also recommended that patient is continued on azithromycin for 4 more days after discharge. Patient was stable and ready for discharge. Patient was advised to follow up with PCP, Dr. Redmond, in one week. Patient was advised to complete 5 day course of azithromycin. Patient was told to continue to take home medications, as instructed. Patient was told to return to the emergency department if symptoms worsen or patient's condition works. This is a brief summary of the events that occurred at the hospital. For a complete description of the events that occurred at the hospital, please refer to hospital documentation. - Date & Time of H&P Date of H&P: 04/12/18 Time of H&P: 14:11 Discharge Exam - Head Exam Head Exam: NORMAL INSPECTION, NORMOCEPHALIC - Eye Exam Eye Exam: EOMI, PERRL - Respiratory Exam Respiratory Exam: Clear to PA & Lateral, NORMAL BREATHING PATTERN - Cardiovascular Exam Cardiovascular Exam: REGULAR RHYTHM, RRR - GI/Abdominal Exam GI & Abdominal Exam: Normal Bowel Sounds, Soft. absent: Tenderness - Extremities Exam Extremities exam: full ROM - Neurological Exam Neurological exam: Alert, CN II-XII Intact, Oriented x3 - Skin Skin Exam: Dry, Intact, Normal Color Discharge Plan - Discharge Medications Prescriptions: Aspirin [Ecotrin] 81 mg PO DAILY #30 tabec Atorvastatin [Lipitor] 20 mg PO DIN #30 tab Azithromycin [Zithromax] 250 mg PO DAILY #4 tab - Follow Up Plan Condition: GOOD Disposition: HOME/ ROUTINE Instructions: Chest Pain (DC), Chest Pain (GEN) Additional Instructions: 1.Please follow up with your PMD within 1 week regarding this admission. 2.Please follow up with Dr. Wright regarding stress tests results within 1-2 weeks. 3.Continue to take new medications aspirin and lipitor as prescribed. You were also prescribed azithromycin which you will take for 4 more days. 4.If symptoms return please don't hesitate to go to your nearest ED. Referrals: Bobby Wright MD [Staff Provider] - <Della Santos - Last Filed: 04/13/18 18:12> Provider - Provider Date of Admission: 04/11/18 18:11 Attending physician: Della Santos MD Consults: 04/11/18 19:11 Physician Consult Routine Comment: Atypical chest pain w/ history of cardiac events Consulting Provider: Bobby Wright Consulting Physician: Bobby Wright Reason for Consult: Atypical chest pain w/ history of cardiac events Hospital Course - Lab Results Lab Results: Most Recent Lab Values WBC 5.1 10^3/uL (4.5-11.0) 04/12/18 06:00 RBC 4.00 10^6/uL (3.5-6.1) 04/12/18 06:00 Hgb 11.9 g/dL (12.0-16.0) L 04/12/18 06:00 Hct 37.9 % (36.0-48.0) 04/12/18 06:00 MCV 94.8 fl (80.0-105.0) 04/12/18 06:00 MCH 29.8 pg (25.0-35.0) 04/12/18 06:00 MCHC 31.4 g/dl (31.0-37.0) 04/12/18 06:00 RDW 13.3 % (11.5-14.5) 04/12/18 06:00 Plt Count 285 10^3/uL (120.0-450.0) 04/12/18 06:00 MPV 10.6 fl (7.0-11.0) 04/12/18 06:00 Gran % 48.8 % (50.0-68.0) L 04/12/18 06:00 Lymph % (Auto) 32.4 % (22.0-35.0) 04/12/18 06:00 [place] % (Auto) 12.5 % (1.0-6.0) H 04/12/18 06:00 Eos % (Auto) 5.7 % (1.5-5.0) H 04/12/18 06:00 Baso % (Auto) 0.6 % (0.0-3.0) 04/12/18 06:00 Gran # 2.51 (1.4-6.5) 04/12/18 06:00 Lymph # (Auto) 1.7 (1.2-3.4) 04/12/18 06:00 [place] # (Auto) 0.6 (0.1-0.6) 04/12/18 06:00 Eos # (Auto) 0.3 (0.0-0.7) 04/12/18 06:00 Baso # (Auto) 0.03 K/mm3 (0.0-2.0) 04/12/18 06:00 Sodium 139 mmol/L (132-148) 04/12/18 06:00 Potassium 3.6 mmol/L (3.6-5.0) 04/12/18 06:00 Chloride 105 mmol/L (98-107) 04/12/18 06:00 Carbon Dioxide 29 mmol/L (21-33) 04/12/18 06:00 Anion Gap 8 (10-20) L 04/12/18 06:00 BUN 11 mg/dL (7-21) 04/12/18 06:00 Creatinine 0.7 mg/dl (0.7-1.2) 04/12/18 06:00 Est GFR ( Amer) > 60 04/12/18 06:00 Est GFR (Non-Af Amer) > 60 04/12/18 06:00 Random Glucose 107 mg/dL (70-110) 04/12/18 06:00 Hemoglobin A1c 5.7 % (4.2-6.5) 04/12/18 06:00 Calcium 9.2 mg/dL (8.4-10.5) 04/12/18 06:00 Phosphorus 4.4 mg/dL (2.5-4.5) 04/12/18 06:00 Magnesium 2.1 mg/dL (1.7-2.2) 04/12/18 06:00 Total Bilirubin 0.3 mg/dL (0.2-1.3) 04/12/18 06:00 AST 25 U/L (14-36) 04/12/18 06:00 ALT 35 U/L (7-56) 04/12/18 06:00 Alkaline Phosphatase 54 U/L (38-126) 04/12/18 06:00 Troponin I < 0.01 ng/mL 04/12/18 06:00 NT-Pro-B Natriuret Pep 79.2 pg/mL (0-450) 04/11/18 17:04 Total Protein 6.5 g/dL (5.8-8.3) 04/12/18 06:00 Albumin 3.6 g/dL (3.0-4.8) 04/12/18 06:00 Globulin 2.9 gm/dL 04/12/18 06:00 Albumin/Globulin Ratio 1.3 (1.1-1.8) 04/12/18 06:00 Triglycerides 91 mg/dL (35-160) 04/12/18 06:00 Cholesterol 203 mg/dL (130-200) H 04/12/18 06:00 LDL Cholesterol Direct 133 mg/dL (0-129) H 04/12/18 06:00 HDL Cholesterol 41 mg/dL (29-60) 04/12/18 06:00 TSH 3rd Generation 1.50 mIU/mL (0.46-4.68) 04/12/18 06:00 Attending/Attestation - Attestation I have personally seen and examined this patient.: Yes I have fully participated in the care of the patient.: Yes I have reviewed all pertinent clinical information, including history, physical exam and plan: Yes
--- NOTE | 2018-04-12 17:18 | CARD ---
APPROVED REPORT Date of service: 04/12/2018 EXAM: Two-dimensional and M-mode echocardiogram with Doppler and color Doppler. INDICATION LV Function:SystolicDiastolic 2D DIMENSIONS Left Atrium (2D)3.7 (1.6-4.0cm)IVSd1.2 (0.7-1.1cm) LVDd4.3 (3.9-5.9cm)PWd1.1 (0.7-1.1cm) LVDs3.2 (2.5-4.0cm)FS (%) 25.8 % LVEF (%)51.0 (>50%) M-Mode DIMENSIONS Aortic Root3.00 (2.2-3.7cm)Aortic Cusp Exc.1.70 (1.5-2.0cm) Aortic Valve AoV Peak Blmomzxa989.0cm/Ray Peak GR.8mmHg Mitral Valve MV E Iidokaww19.7cm/sMV A Gfetydhe18.7cm/sE/A ratio0.8 TDI E/Lateral E'0.0E/Medial E'0.0 Tricuspid Valve TR Peak [id number]/sRAP [id number] Peak Gr.12mmHg [id number] LEFT VENTRICLE The left ventricle is normal size. There is borderline concentric left ventricular hypertrophy. Proximal septal thickening is noted. The left ventricular function is normal.EF-55% There is normal LV segmental wall motion. Transmitral Doppler flow pattern is Grade III-reversible restrictive diastolic dysfunction. No left ventricle thrombus noted on this study. There is no ventricular septal defect visualized. There is no left ventricular aneurysm. There is no mass noted in the left ventricle. RIGHT VENTRICLE The right ventricle is normal size. There is normal right ventricular wall thickness. The right ventricular systolic function is normal. ATRIA The left atrium size is normal. The right atrium size is normal. The interatrial septum is intact with no evidence for an atrial septal defect. AORTIC VALVE The aortic valve is thickened but opens well. No aortic regurgitation is present. There is no aortic valvular stenosis. There is no aortic valvular vegetation. MITRAL VALVE The mitral valve is thickened but opens well. Mitral regurgitation is trace. There is no mitral valve stenosis. There is no evidence of mitral valve prolapse. TRICUSPID VALVE The tricuspid valve leaflets are thickened , but open well. There is trace tricuspid regurgitation.RVSP_17 mmof Hg. There is no tricuspid valve stenosis. There is no tricuspid valve prolapse or vegetation. PULMONIC VALVE The pulmonary valve is normal in structure. There is no pulmonic valvular regurgitation. There is no pulmonic valvular stenosis. GREAT VESSELS The aortic root is normal in size. The ascending aorta is normal in size. The pulmonary artery is normal. The IVC is normal in size and collapses >50% with inspiration. PERICARDIAL EFFUSION There is no pleural effusion. There is no pericardial effusion. <Conclusion> Normal Chamber Size. EF-55% Mitral regurgitation is trace. There is trace tricuspid regurgitation.RVSP_17 mmof Hg. There is no pericardial effusion. The IVC is normal in size and collapses >50% with inspiration.
--- NOTE | 2018-04-12 18:15 | CON ---
DATE: 04/12/2018 CONSULT SERVICE: Cardiology. REASON FOR CONSULTATION: Cardiac evaluation, chest pain, history of [place] in the past, hypertension, hyperlipidemia. The patient presented with chest pain of 3 days, sharp like somebody is putting a knife. The patient is scheduled for a stress test and echo today. Also, we will start Zithromax because the patient is complaining of 4 to 5 days of running nose and the nose is stuffy and then associated with some chest pain, also started coughing. We will treat this as acute bronchitis as well. This note is in addition to the note dictated by the nurse practitioner. We will follow with you. We will get the lipid profile, TSH, hemoglobin A1c. We will follow. So far, no evidence of acute [place]. The TSH is within normal limit and LDL elevated at 133. We will increase atorvastatin to 20, start some Zithromax and with echo and stress test. Further recommendations will depend on hospital course. We will follow with you. We will give IV Zithromax one dose and followed by 250 daily for four days. Thank you Dr. Santos for providing us the opportunity in taking care of the patient, Dali Yates. Bobby Wright MD
[2018-04-12] MEDS ORDERED: Influenza Vaccine 60 mcg/0.5 mL SYR (4YR UP) IM ONE (18:17)
[2018-04-12] MEDS ORDERED: Flumazenil 0.1 mg/ml Inj (5ml) IVP ONE (18:24)
[2018-04-12 18:29] VITALS: PULSE 72
[2018-04-12 19:20] VITALS: BP 143/91; RESP 19; TEMP 97
--- NOTE | 2018-04-12 21:48 | CARD ---
APPROVED REPORT Date of service: 04/12/2018 Protocol: GOMEZ Test Type: Sestamibi Stress Test Attending Physician: Dr. Bobby Wright Referring Physician: Dr. Della Santos Test Indications: Chest Pain Height:5 ft 4 in Weight:163lbs Medications: Tylenol,Duoneb,Norvasc,Ecotrin,Lipitor Lovenox, Flonase,Toradol,Metoprolol Tartr Singulair,Zoloft,Zofran Medical History: 62 year old female with history of chest pain, asthma,ID,HTN, high cholesterol,TIA, renal disease Target HR: 158 bpm Resting ECG: normal Resting Heart Rate: 101 bpm Resting Blood Pressure: 138/84mmHg Submaximum (85%): 134 bpm POST EXERCISE Reason for Termination: Fatigue Target HR: No Max HR: 146 bpm 92% of Maximum Predicted HR: 158 bpm Exercise duration: 07:00 min:sec, 3 Stage Exercise capacity: 8.5METs Max Blood Pressure: 160/90mmHg Blood Pressure response to exercise: normal resting BP - appropriate response Heart Rate response to exercise: appropriate Chest Pain: No, none Angina index: 0 Arrhythmia: No, none ST Change: No, none Deviation: 0 mm INTERPRETATION Stress EKG Conclusion: Negative Stress test for Ischemia and for chest pain, Nuclear scan to follow. Signed by Bobby Wright Electronically Approved: 04/12/2018 11:17:10 EXAM: Myocardial Perfusion REST/STRESS Stress Test Type: Exercise Treadmill Imaging Protocol Rest Spect myocardial perfusion imaging was performed in supine position 50 minutes following the injection of 10.3 mCi of Tc-99 Myoview. At peak stress, the patient was injected intravenously with 30.2mCi of Tc-99 tetrofosmin after an exercise time of 7 minutes and 00 seconds. Gated Stress Spect was performed 65 minutes after intravenous Tc-99 Myoview injection. The images were gated to evaluate regional wall motion and calculate ventricular ejection fraction.Images were reconstructed using backfilter projection method in short horizontal and verticle long axis. Spect slices were generated. LV Perfusion The quality of the study is good. The left ventricle is normal in size. The right ventricle is unremarkable. The lung uptake is normal. The distribution of tracer reveals a small area of mildly to moderately decreased perfusion in the apical/ distal inferior wall on the stress study. The remainder of the LV myocardium is unremarkable. The rest myocardial perfusion study shows partial improvement of the defect. Wall Motion Normal gated wall motion of the left ventricle. LVEF = 71%. Conclusion 1. Probably abnormal SPECT myocardial perfusion study. 2. Partially reversible, apical / distal inferior defect is suspicious of ischemia. 3. Normal gated wall motion of the left ventricle. 4. In comparison with the last study of 09/11/2014, the defect appears new.
--- NOTE | 2018-04-17 08:21 | PN ---
DATE: 04/12/2018 TYPE OF DICTATION: Addition note after the stress test result reviewed. The patient had a event of stress test on dated 04/12/2018, came day before yesterday that shows probably abnormal myocardial perfusion study, partially reversible, apical and inferior defects suspicious for ischemia. I called the patient's telephone number of [phone] and went over the stress test and suggested that the patient did cardiac catheterization. Because of the holiday, the patient prefers to have a cardiac catheterization after the holiday, so the patient has been scheduled on 05/10/2018 at 07:30 a.m. for cardiac catheterization, possible angioplasty. Further recommendation after cardiac catheterization. Thank you Dr. Santos for providing us the opportunity in taking care of the patient, Dali Yates. Bobby Wright MD cc: Dr. Santos
== END 2018-04-12 19:47 | disposition home or self-care (01) ==
LOC: ED 16:29 → ERH 18:11 → 2RNO 04-12 03:39
PROVIDERS: ADMIT Internal Medicine; ATTEND Internal Medicine
DX: R07.2 Precordial pain (principal); I10 Essential (primary) hypertension; E78.00 Pure hypercholesterolemia, unspecified; G47.33 Obstructive sleep apnea (adult) (pediatric); K21.9 Gastro-esophageal reflux disease without esophagitis; J20.9 Acute bronchitis, unspecified; E78.5 Hyperlipidemia, unspecified; I25.2 Old myocardial infarction; J45.909 Unspecified asthma, uncomplicated; Z87.11 Personal history of peptic ulcer disease; Z86.73 Personal history of transient ischemic attack (TIA), and cerebral infarction without residual deficits; Z91.19 Patient's noncompliance with other medical treatment and regimen; Z23 Encounter for immunization
CPT/HCPCS: 36415; 71046; 78452; 80053; 80061; 83036; 83735; 83880; 84100; 84443; 84484; 85025; 90471; 90674; 93005; 93017; 93306; 96365; 96366; 96372; 96375; 99285; A9502; G0378; J0456; J1650; J1885

== ENCOUNTER 2018-05-10 06:54 | Day surgery (SDC) | payer MEDICAID ==
[2018-05-10 07:30] LABS: BASO # 0.04 K/mm3 (0.0-2.0); BASO % 0.6 % (0.0-3.0); EOS # 0.4 (0.0-0.7); EOS % 6.1 % (1.5-5.0); GRAN # 3.5 (1.4-6.5); GRAN % 48.3 % (50.0-68.0); HEMOGLOBIN 12.5 g/dL (12.0-16.0); LYMPH # 2.8 (1.2-3.4); LYMPH % 38.5 % (22.0-35.0); MEAN CELL VOLUME 95.9 fl (80.0-105.0); MEAN CORPUSCULAR HEMOGLOBIN 30.5 pg (25.0-35.0); MEAN CORPUSCULAR HGB CONC 31.8 g/dl (31.0-37.0); MEAN PLATELET VOLUME 10.5 fl (7.0-11.0); MONO # 0.5 (0.1-0.6); MONO % 6.5 % (1.0-6.0); RBC 4.1 10^6/uL (3.5-6.1); RED CELL DISTRIBUTION WIDTH 13.2 % (11.5-14.5); WHITE BLOOD COUNT 7.2 10^3/uL (4.5-11.0)
[2018-05-10 07:44] LABS: INR 1.17; PARTIAL THROMBOPLASTIN TIME 30.7 Seconds (25.1-36.5); PROTHROMBIN TIME 13.5 SECONDS (9.4-12.5)
[2018-05-10 07:47] LABS: BLOOD UREA NITROGEN 16 mg/dL (7-21); CALCIUM 9.3 mg/dL (8.4-10.5); GFR NON-AFRICAN AMERICAN > 60; HDL CHOLESTEROL 51 mg/dL (29-60)
[2018-05-10 07:51] LABS: LDL CHOLESTEROL 96 mg/dL (0-129)
--- NOTE | 2018-05-10 09:26 | CARD ---
APPROVED REPORT Date of service: 05/10/2018 EKG Measurement Heart [id number] <Conclusion> Sinus bradycardia Minimal voltage criteria for LVH, may be normal variant Nonspecific T wave abnormality
[2018-05-10] MEDS ORDERED: Verapamil 2 ML ONE (09:55)
[2018-05-10] MEDS ORDERED: Iodixanol 320 MG/ML 200 ML BOTTLE IV ONE (09:55)
[2018-05-10] MEDS ORDERED: Lidocaine 2% Inj (20ml) ONE (09:55)
[2018-05-10] MEDS ORDERED: Iohexol 350mgl/ml 50 ML ONE (10:07)
[2018-05-10] MEDS ORDERED: Midazolam 2 MG/2 ML VIAL ONE ×2 (10:49→11:08)
[2018-05-10] MEDS ORDERED: Adenosine 90 mg/30mL IV ONE (11:16)
--- NOTE | 2018-05-10 11:28 | HP ---
DATE OF EXAM: 05/09/2018 REASON FOR ADMISSION: Abnormal stress test, left heart cath, possible angioplasty. BRIEF CLINICAL HISTORY: This is a 62-year-old female with past medical history significant for ID in the past, hyperlipidemia, hypertension, TIA, history of peptic ulcer disease, and recently admitted with chest pain. The patient underwent stress test, abnormal, so the patient is scheduled for elective cardiac cath, possible angioplasty. PAST MEDICAL HISTORY: Significant for diabetes, hypertension, hyperlipidemia, history of ID in 2004, and history of mitral valve disease. Recent cardiac workup as follows. The patient had stress test 04/12/2018 that revealed probably a normal myocardial perfusion study, ejection fraction 71%, and partially reversible apical defect suggestive of ischemia. The patient had also echocardiography done 04/12/2018, that reveal normal chamber size, ejection fraction 55%, trace mitral regurgitation, trace tricuspid regurgitation, and RV systolic pressure of 17. ALLERGIES: NO KNOWN DRUG ALLERGIES. CURRENT MEDICATIONS: The patient at home is taking amlodipine 10 mg daily, Zoloft 50 mg daily, ranitidine 150 mg daily, multivitamin one capsule daily, Singulair, metoprolol 25 daily, atorvastatin 20, and aspirin 81 mg daily. REVIEW OF SYSTEMS: As per HPI. PHYSICAL EXAMINATION: VITAL SIGNS: As follows; height of the patient is 5 feet 4 inches, weight of the patient is 163 pounds, and body mass index 28 kg/m2. Temperature afebrile, heart rate 72, and blood pressure 143/91. HEENT: PERRLA. Extraocular muscles intact. NECK: Supple. No carotid bruit, JVD or thyromegaly. CHEST: Clear to auscultation. HEART: S1 and S2 regular. ABDOMEN: Soft. EXTREMITIES: Clubbing and cyanosis negative. LABORATORY DATA: Blood workup as of 04/12/2018; WBC 7.8, hemoglobin 11.9, hematocrit 37.9, and platelet count 285. Chemistry shows sodium 139, potassium 3.6, chloride 105, carbon dioxide 29, anion gap of 8, BUN 11, and creatinine 0.7. LDL 133, HDL 41, and total cholesterol 203. IMPRESSION AND PLAN: A 62-year-old female with past medical history of diabetes, hypertension, hyperlipidemia, and admitted with atypical chest pain. At that time, troponin remained negative, ruled for myocardial infarction, but the patient had stress test that was anterior reversible ischemia dated 04/12/2018 shows reversible distal apical and apical inferior defect suggestive of ischemia, ejection fraction reported 71%. The patient's echocardiography also at that time that shows normal chamber size, trace mitral regurgitation, trace tricuspid regurgitation, given the multiple risk factors of coronary artery disease as well positive stress, the patient is scheduled for elective cardiac catheterization, possible angioplasty. We will load aspirin and Plavix, review the blood workup is available and further recommendation depending upon availability of the blood workup. Risks, benefits, and alternatives were discussed with the patient and the patient agreed to proceed for the cardiac catheterization and further recommendation after cardiac catheterization. We will follow with you. Thank you Dr. Santos for providing us the opportunity in taking care of the patient, Dali Yates. Bobby Wright MD [facility]
[2018-05-10] MEDS ORDERED: Bacitracin 500 Units/gm Oint Foilpak UD TOP ONE (11:40)
[2018-05-10] MEDS ORDERED: Sodium Chloride 0.9% 1,000 ML IV SCH (11:45)
[2018-05-10] MEDS ORDERED: Bacitracin 500 Units/gm Oint Foilpak UD ONE (14:08)
[2018-05-10 14:39] VITALS: O2SAT 100
[2018-05-10 14:42] VITALS: PULSE 60; TEMP 98
[2018-05-10 14:48] VITALS: BP 131/76; RESP 20
--- NOTE | 2018-05-10 16:13 | CPOSTOP ---
DATE: 05/10/2018 DICTATING PHYSICIAN: Bobby Wright MD SPRAYER OPERATOR: ARPITA Pop. TYPE OF ANESTHESIA: Moderate conscious sedation. Total 2 mg of Versed and 100 fentanyl given periodically. Started 1 mg of Versed and 50 of fentanyl. PREPROCEDURE DIAGNOSIS: Admitted with unstable angina, abnormal stress test. PROCEDURES PERFORMED: 1. Left heart catheterization. 2. Fractional flow reserve in circumflex. FINDINGS: 1. Circumflex mid 60% stenosis. 2. FFR 0.98 (nonobstructive coronary artery disease). FINAL DIAGNOSIS: Nonobstructive coronary artery disease. POSTPROCEDURE CONDITION: The patient's condition is stable. VASCULAR ACCESS SITE: Left radial. CLOSURE DEVICE: TR band. TOTAL RADIATION DOSE: 5267.85 mGy. TOTAL FLUORO TIME: 3.3 minutes. Bobby Wright MD
--- NOTE | 2018-05-10 18:17 | CARD ---
APPROVED REPORT Date of service: 05/10/2018 Procedure(s) performed: Left Heart Catheterization FFR of Mid CX ......0.98 ( Non Obst. CAD) HISTORY The patient is a 62 year-old female with a history of : previous AK (> 7 days), previous CVA , chronic lung disease, previous diagnostic cath, hypertension , dyslipidemia , cerebrovascular disease , Admitted recently before [place] with chest pain underwent stress test,which was positive Apical ischemia, opted to have cardiac cath after lazara.. INDICATION The indication(s) include : positive stress test. CASE TECHNIQUE The patient was brought electively to the Cardiac Catheterization Laboratory in a fasting state and was prepped and draped in a sterile manner. The left wrist was infiltrated with 2% Lidocaine subcutaneous anesthesia. A 6FR GLIDESHEATH ACCESS KIT sheath was inserted into the left radial artery without difficulty. Coronary angiography was performed using coronary diagnostic catheters. The left coronary system was accessed and visualized with a Diagnostic ,5F JL 4 CATH DXT 100 CM catheter. The right coronary system was accessed and visualized with a Diagnostic,5F JR 4 CATH DXT 100 CM catheter. The left ventricle was accessed and visualized with a 5F PIGTAIL 145 CATH DXT 110 CM catheter. Left ventricular/Aortic Valve gradient assessed on pullback. Left ventriculogram was performed in RODRIGUEZ projection. Closure device was deployed with a Fr TR Band (Regular) without any complications. The patient tolerated the procedure well and there were no complications associated with the procedure. Vessel Analysis The patient's coronary anatomy is right dominant. The left main coronary artery is a large size vessel without significant stenosis. The left main bifurcates to the left anterior descending and circumflex. The left anterior descending artery is a medium size vessel with intimal irregularities and without significant stenosis. The first diagonal branch is a large size vessel without significant stenosis. The second diagonal branch is a small size vessel without significant stenosis. The circumflex artery is a medium size vessel with diffuse calcification noted throughout this vessel and without significant stenosis. There is a 60-70% stenosis in the mid segment. The first obtuse marginal branch is a medium size vessel with diffuse calcification noted throughout this vessel and without significant stenosis. There is a 50-60% stenosis in the proximal segment. involving tortousity. The right coronary artery is a medium size vessel with diffuse calcification noted throughout this vessel and without significant stenosis. There is a 20-30% stenosis in the mid segment. The right posterior descending artery is a medium size vessel with diffuse calcification noted throughout this vessel and without significant stenosis. The right posterolateral branch is a small size vessel with diffuse calcification noted throughout this vessel and without significant stenosis. Left Ventricle The left ventricle is normal in size with normal contractility. There was no cardiomyopathy. The left ventricular ejection fraction is estimated to be 60-65%. The left ventricular end diastolic pressure is 12 mmHg. There was no gradient across the aortic valve upon pullback. IVUS Anticoagulation was achieved with Heparin. Fractional Flow Boyd was performed on the mid circumflex artery segment vessel. A 6 Fr XB 3 Guide Catheter was used to engage the ostium. A 0.035 x 260 cm J Tip Interventional Guidewire was used. A FFR wire was used. FINDINGS 0.98 two minutes after infusion of Adenosine COMMENTS Non obstructive CAD PCI Technique Lesion Percutaneous coronary intervention was performed on the mid circumflex artery segment. Conclusion Moderate Mid Cx disease, 60-70% with FFR 0.98 ( non Obstructive) Preserved LV FX. EF-609-65%, EDP-12 mmof Hg. Recommendations Aggressive Medical TherapyCardiac Risk Reduction Program Weight Loss Reduction Program CC; Dr. Redmond
== END 2018-05-10 15:15 | disposition home or self-care (01) ==
LOC: CATH 06:54
PROVIDERS: ATTEND Internal Medicine Cardiovascular Disease
DX: I25.10 Atherosclerotic heart disease of native coronary artery without angina pectoris (principal); I10 Essential (primary) hypertension; E11.9 Type 2 diabetes mellitus without complications; I25.2 Old myocardial infarction; E78.5 Hyperlipidemia, unspecified; Z86.73 Personal history of transient ischemic attack (TIA), and cerebral infarction without residual deficits
CPT/HCPCS: 36415; 80048; 80061; 85025; 85610; 85730; 86850; 86900; 93005; 93458; 93571; 99152; C1769 ×2; C1887; J0153; J1644; J2250; J3010; J7030; Q9966

== ENCOUNTER 2018-08-29 11:01 | Outpatient (CLI) | payer MEDICAID | END 2018-08-29 11:02 | disposition home or self-care (01) | LOC: RAD 11:01 ==